=== PATIENT | male | born 1985 | race Caucasian/White ===

== ENCOUNTER 2021-04-10 14:14 | Emergency (ER) | payer OTHER, SELFPAY ==
[2021-04-10 14:20] VITALS: BP 121/62; PULSE 61; RESP 20; TEMP 36.6; O2SAT 100
== END 2021-04-10 14:20 | disposition left against medical advice (07) ==
PROVIDERS: PCP Family Medicine
DX: H57.12 Ocular pain, left eye (principal)
CPT/HCPCS: 99199

== ENCOUNTER 2021-05-19 10:00 | Emergency (ER) | payer OTHER, SELFPAY ==
--- NOTE | ~2021-05-19 | CT_ITS ---
EXAMINATION: CT abdomen pelvis w con DATE: 05/19/2021 12:06 INDICATION: Epigastric abdominal pain TECHNIQUE: Computed tomography (CT) of the abdomen and pelvis was performed with 100 mL Omnipaque-350 intravenous contrast. Automated exposure control and iterative reconstruction technique were employe d. The dose-length product was 386.15 mGy-cm. COMPARISON: None FINDINGS: Mild dependent atelectasis in the bilateral lower lobes. Heart size is normal. No pericardial or pleu ral effusion. Liver, gallbladder, pancreas, spleen, bilateral kidneys and right adrenal gland are nor mal. 1.9 cm left adrenal nodule. Normal appendix. No bowel obstruction. Bladder is normal. No free in traperitoneal gas or fluid. No pathologically enlarged abdominal or pelvic lymphadenopathy. Bones are unremarkable. IMPRESSION: 1. No acute intra-abdominal/pelvic process. 2. Probably benign 1.9 cm left adrenal nodule statistically most likely represents an adenoma but wou ld recommend 12 month follow-up pre and postcontrast adrenal protocol CT or MRI. Reviewed, dictated and finalized at location A. IMPRESSION: 1. No acute intra-abdominal/pelvic process. 2. Probably benign 1.9 cm left adrenal nodule statistically most likely represe nts an adenoma but would recommend 12 month follow-up pre and postcontrast adre nal protocol CT or MRI.
[2021-05-19 10:08] VITALS: BP 123/76; PULSE 60; RESP 19; TEMP 36.7; O2SAT 100
[2021-05-19 10:44] LABS: Basophils Absolute Auto 0.1 K/mm3 (0.0-0.1); Basophils Percent Auto 0.5 % (0.2-1.2); Eosinophils Absolute Auto 0.2 K/mm3 (0-0.3); Eosinophils Percent Auto 1.7 % (0-4.4); Hematocrit 41.7 % (42.0-52.0); Hemoglobin 14.3 g/dL (14.0-18.0); Immature Granulocyte Absolute 0.03 K/mm3 (0.00-0.031); Immature Granulocyte Percent A 0.3 % (0-0.5); Lymphocytes Absolute Auto 2.46 K/mm3 (0.9-3.2); Lymphocytes Percent Auto 22.5 % (18.3-44.2); Mean Corpuscular HGB Conc 34.3 g/dl (32-36); Mean Corpuscular Hemoglobin 30.6 pg (26-34); Mean Corpuscular Volume 89.3 fl (80-100); Mean Platelet Volume 10.9 fl (7.4-10.4); Monocytes Absolute Auto 1.1 K/mm3 (0.1-0.6); Monocytes Percent Auto 9.7 % (2.6-8.5); Neutrophils Absolute Auto 7.1 K/mm3 (1.3-6.7); Neutrophils Percent Auto 65.3 % (45.5-73.1); Platelet Count Result 252 k/mm3 (150-375); Red Blood Count 4.67 M/mm3 (4.6-6.20); Red Cell Distribution Width 12.6 % (11.5-14.5); White Blood Count 10.9 K/mm3 (4.5-10.0)
--- NOTE | 2021-05-19 10:49 | ECG_ITS ---
Measurements Intervals [place] Rate: 43 P: 66 WI: 222 QRS: 18 QRSD: 109 T: 21 QT: 430 QTc: 368 Interpretive Statements SINUS BRADYCARDIA WITH FIRST DEGREE AV BLOCK INCOMPLETE RIGHT BUNDLE BRANCH BLOCK ABNORMAL ECG Electronically Signed On 05-19-2021 11:56:44 CDT by Mckay Healy D.O.
--- NOTE | 2021-05-19 10:50 | ED.ABDPAIN ---
HPI - Abdominal Pain General Chief Complaint: Abdominal Pain Stated Complaint: Abd Pain Time Seen by Provider: 05/19/21 10:22 Source: patient Mode of arrival: ambulatory Limitations: no limitations History of Present Illness HPI narrative: This is a 35 year old male that presents to the ER for epigastric abdominal pain x 3 days. Reports the pain is a constant burning sensation. Reports sometimes it is sharp in nature. Sometimes the pain radiates into his chest. He reports history of peptic ulcer disease. He has not seen a GI doctor in years. He does not take a daily antacid. He did try to take some Pepcid with little relief. Does report one episode of nausea and vomiting. Also reports intermittent diarrhea. Denies fever or melena. Related Data Allergies Allergy/AdvReac Type Severity Reaction Status Date / Time codeine Allergy Mild Unknown Verified 05/19/21 10:16 tramadol Allergy Mild Unknown Verified 05/19/21 10:16 ketorolac [From Toradol] Allergy Unknown Unknown Verified 05/19/21 10:16 Review of Systems Review of Systems: CONSTITUTIONAL: Denies fever GASTROINTESTINAL: Reports abdominal pain, nausea, vomiting, and diarrhea. All systems reviewed & are unremarkable except as noted in HPI and below PMFSH Past Medical History Medical History (Updated 05/19/21 @ 13:27 by Louisa Bernal PA-C) Back pain Migraine Surgical History Surgical History (Updated 05/19/21 @ 10:53 by Louisa Bernal PA-C) History of esophagogastroduodenoscopy (EGD) Family History Family History Mother Breast cancer Other Diabetes mellitus Hypertension Kidney disease Social History Social History Smoking packs per day: 0.5 Smoking cigarettes per day: 10.0 Years smoked: 25 Smoking pack-years: 12.50 Smoking status: Current every day smoker (0.5 ppd x 20 yrs.) Tobacco type: cigarettes Alcohol intake: never Substance use: current Substance use type: marijuana Other substance usage details: occasional recreational use Exam Narrative: GENERAL: Well-appearing, well-nourished, and in no acute distress. HEAD: Normocephalic, atraumatic. EYES: PERRLA and EOMI. CHEST: Clear to auscultation. No respiratory distress. No wheezes rales or rhonchi HEART: Regular rate and rhythm. No murmur heard. Normal peripheral pulses. ABDOMEN: Soft, nondistended, normal active bowel sounds. Tender to palpation in the epigastrium, without guarding EXTREMITIES: Normal range of motion. No edema. SKIN: Warm, dry, no rash. NEURO: No focal deficits. Alert and oriented x3. PSYCH: Normal mood and affect Course Vital Signs Vital signs: Vital Signs Temperature 98.1 F 05/19/21 10:08 Pulse Rate 60 05/19/21 10:08 Respiratory Rate 19 05/19/21 10:08 Blood Pressure 123/76 05/19/21 10:08 Pulse Oximetry 100 05/19/21 10:08 Temperature 98.1 F 05/19/21 10:08 Pulse Rate 60 05/19/21 10:08 Respiratory Rate 19 05/19/21 10:08 Blood Pressure 123/76 05/19/21 10:08 Pulse Oximetry 100 05/19/21 10:08 MDM - Abdominal Pain MDM Narrative Medical decision making narrative: Patient presents to the emergency department for epigastric abdominal pain present over the last couple of days. Reports history of peptic ulcer disease. He is afebrile and nontoxic-appearing. Vitals are stable. CBC with mild leukocytosis to 10.9. Metabolic panel without concerning findings. Lipase is normal. UA without evidence of infection. EKG without acute changes. Baseline troponin is negative. CT scan of the abdomen and pelvis is without acute findings. Does show probably benign 1.9 cm left adrenal nodule, most likely adenoma but would recommend follow-up [address] or MRI. Patient was updated on case findings. He is stable and felt appropriate for further outpatient evaluation. He is to follow-up with gastroenterology
[2021-05-19 11:02] LABS: Alanine Aminotransferase 13 U/L (4-50); Albumin Level 4.5 g/dL (3.5-5.1); Alkaline Phosphatase 55 U/L (38-126); Anion Gap 7 mmol/L (8-16); Aspartate Amino Transferase 18 U/L (17-59); Bilirubin,Total 0.8 mg/dL (0.2-1.3); Blood Urea Nitrogen 12 mg/dL (9-20); Calcium 9.2 mg/dL (8.4-10.2); Carbon Dioxide 27 mmol/L (22-30); Chloride 106 mmol/L (98-107); Estimated CRCL calculation 100 ml/min; Estimated Glomerular Filt Rate > 60; Glucose 95 mg/dL (65-110); Lipase 30 U/L (23-300); Potassium 3.6 mmol/L (3.4-5.0); Sodium 140 mmol/L (137-145)
[2021-05-19 11:38] LABS: Add Urine Microscopic? YES; Appearance Urine Clear (Clear); Bacteria Urine Trace /hpf; Bilirubin Urine Negative (Negative); Blood Urine Negative (Negative); Color Urine Yellow (Yellow); Glucose Urine UA Negative (Negative); Ketones Urine Negative (Negative); Leukocyte Esterase Ur Negative LEU/UL (Negative); Mucus Urine Rare /lpf; Nitrate Urine Negative (Negative); Protein Urine 1+ mg/dL (Negative); Specific Grav Ur 1.018 (1.001-1.035); Squamous Epithelial Cell Urine Rare /hpf (Few); Urobilinogen Urine Negative mg/dL (<2.0); WBC Urine 0-3 /hpf
[2021-05-19 12:33] LABS: Troponin I < 0.012 ng/mL (0.000-0.034)
[2021-05-19] MEDS: SODIUM CHLORIDE 0.9% IV 1,000 ML 999 ML IV CONT (12:57)
[2021-05-19] MEDS: ONDANSETRON INJ 4 MG/2 ML VIAL IV PUSH (12:57)
[2021-05-19] MEDS: PANTOPRAZOLE SODIUM IV 40 MG VIAL IV PUSH (12:57)
[2021-05-19 13:26] LABS: Partial Thromboplastin Time 28.8 SECONDS (22.3-36.8); Prothrombin Time 12.6 Seconds (11.1-14.7)
[2021-05-19 14:12] VITALS: BP 110/74; PULSE 53; RESP 16; O2SAT 100
== END 2021-05-19 13:41 | disposition home or self-care (01) ==
PROVIDERS: Physician Assistant; Emergency Provider Emergency Medicine; PCP Family Medicine
DX: R10.13 Epigastric pain (principal); D35.02 Benign neoplasm of left adrenal gland; F17.210 Nicotine dependence, cigarettes, uncomplicated
CPT/HCPCS: 36415; 74177; 80053; 81001; 83690; 84484; 85025; 85610; 85730; 93005; 96361; 96374; 96375; 99284; C9113; J2405; J7030; Q9967

== ENCOUNTER → 2021-08-13 03:26 | Outpatient (CLI) | payer OTHER, SELFPAY ==
[2021-08-13 14:17] LABS: Influenza Control Positive
[2021-08-14 22:39] LABS: SARS-CoV-2 RNA PCR Positive
== END ==
PROVIDERS: PCP Family Medicine; Visit Provider Physician Assistant
DX: R50.9 Fever, unspecified (principal); U07.1 COVID-19
CPT/HCPCS: 87804; C9803; U0003; U0005

== ENCOUNTER 2023-04-28 11:01 | Outpatient (CLI) | payer OTHER, SELFPAY ==
[2023-04-28 12:19] LABS: Influenza A QL RT-PCR Negative (Negative); Influenza B QL RT-PCR Negative (Negative); RSV RNA, RT-PCR Negative (Negative); SARS-CoV-2 RNA PCR Negative (Negative)
== END 2023-04-28 11:02 | disposition home or self-care (01) ==
PROVIDERS: PCP Family Medicine; Visit Provider Family Medicine
DX: J06.9 Acute upper respiratory infection, unspecified (principal)
CPT/HCPCS: 87637

== ENCOUNTER 2024-03-12 08:40 | Outpatient (NON) | payer OTHER, SELFPAY | END 2024-03-12 08:41 | disposition home or self-care (01) | LOC: ANHLAB 03-13 08:43 | PROVIDERS: PCP Family Medicine; Visit Provider Internal Medicine Gastroenterology | DX: K21.9 Gastro-esophageal reflux disease without esophagitis (principal) | CPT/HCPCS: 88305 ==

== ENCOUNTER 2024-03-12 09:33 | Day surgery (SDC) | payer OTHER, SELFPAY ==
[2024-02-14 10:54] VITALS: BMI 30.9
[2024-02-26 11:27] VITALS: BMI 30.3
--- NOTE | 2024-03-11 15:30 | PM.HPGS ---
History of Present Illness History of Present Illness Consent: Risks, benefits, and alternatives have been discussed and questions answered. Patient agrees to proceed with procedure. Chief complaint: Gerd wo Esophagitis, FM HX Malignant Neoplasm of Narrative: Mario Mcgowan is a 38 year old male who was taking Nexium intermittently, every few months when his heartburn would return and has been doing this since his early 20's. He was taking Nexium 20 mg daily for about a week before seeing his PCP as it was not helping his symptoms. He developed heartburn, sour taste, and sharp pain in the stomach going all the way up to the chest a couple times a week, mainly at night. The heartburn was severe enough to take his breath away when sleeping. He does not report any nausea, vomiting, dysphagia, melena or hematochezia. He was started on omeprazole 40 mg daily on 01/16/2023 which improved his symptoms within a couple days and he has been asymptomatic since. He denies any loss of appetite or unexplained weight loss. He takes ibuprofen 200 mg daily a few times weekly. He denies alcohol use. Family history is significant for esophageal cancer in his mother diagnosed in her 40s. Omeprazole has relieved heartburn but he does still have nocturnal regurgitation. Review of Systems Review of Systems: All systems reviewed & are unremarkable except as noted in HPI and below PMFSH Past Medical History Medical History Back pain Bipolar disorder Migraine Surgical History Surgical History History of esophagogastroduodenoscopy (EGD) Family History Family History Mother Breast cancer Other Diabetes mellitus Hypertension Kidney disease Social History Social History Smoking packs per day: 1 Smoking cigarettes per day: 20.0 Years smoked: 20 Smoking pack-years: 20.00 Smoking status: Current every day smoker Tobacco type: cigarettes Alcohol intake: never Substance use: current Substance use type: marijuana Other substance usage details: smokes marijuana daily Lack of Transportation: No Lack of Food: Never True Current Housing: I Have Housing Concerned About Future Housing: No Difficulty Paying Gas/Electric Bills: No Difficulty Paying for Meds: No Currently Unemployed: No Education: Decline to Answer Difficulty w/ Childcare or Family Care: No Living arrangements: with family Occupation/Education: occupation Gender identity (if verbalized by the patient): Male Sexual Orientation (if Verbalized by the Patient): Straight or Heterosexual Spiritual care concerns: No Agree to blood products: Yes Meds Home Medications and Allergies Home Medications Medication Instructions Recorded Confirmed Type quetiapine 50 mg tablet 250 mg PO QHS #450 tabs 12/11/23 03/12/24 Rx omeprazole 40 mg capsule,delayed 40 mg PO DAILY #30 caps 01/17/24 03/12/24 Rx release Allergies Allergy/AdvReac Type Severity Reaction Status Date / Time codeine Allergy Mild Unknown Verified 03/12/24 10:04 tramadol Allergy Mild Unknown Verified 03/12/24 10:04 ketorolac [From Toradol] Allergy Unknown Unknown Verified 03/12/24 10:04 Exam Const: General: alert Orientation/consciousness: patient oriented x3 Resp: Auscultation: clear to auscultation bilaterally Cardio: Rhythm: regular rhythm GI: GI Palp: Yes Soft to palpation and No Tenderness to palpation present (GI) Neuro: General: patient oriented x3 Assessment and Plan Assessment and plan (1) GERD (gastroesophageal reflux disease): Qualifiers: Esophagitis presence: without esophagitis Qualified Code(s): K21.9 - Gastro-esophageal reflux disease without esophagitis Code(s): K21.9 - Gastro-esophageal reflux disease without
--- NOTE | 2024-03-12 06:46 | P.PNAN_ITS ---
Anes - Initial Pre Proc Eval Procedure: Operation Date: 03/12/24 11:30 Proposed Procedures p Esophagogastroduodenoscopy - Arthur Ji MD Date/Time: 03/12/24 06:46 Surgeon: Arthur Ji MD Pre Op Diagnosis: Gerd wo Esophagitis, FM HX Malignant Neoplasm of Patient Data Age: 38 Gender: M Height: 1.78 m Weight: 96 kg Allergies Allergy/AdvReac Type Severity Reaction Status Date / Time codeine Allergy Mild Unknown Verified 03/12/24 10:04 tramadol Allergy Mild Unknown Verified 03/12/24 10:04 ketorolac [From Toradol] Allergy Unknown Unknown Verified 03/12/24 10:04 Home Medications Medication Instructions Recorded Confirmed Type quetiapine 50 mg tablet 250 mg PO QHS #450 tabs 12/11/23 03/12/24 Rx omeprazole 40 mg capsule,delayed 40 mg PO DAILY #30 caps 01/17/24 03/12/24 Rx release Patient hx anesthesia problems: none Family hx anesthesia problems: none Results Review: All pre-operative results and documents have been reviewed as part of the pre-operative evaluation. [facility] Past Medical History Medical History (Updated 03/11/24 @ 16:46 by Beto Laura DO) Back pain Bipolar disorder Migraine Surgical History Surgical History History of esophagogastroduodenoscopy (EGD) Family History Family History Mother Breast cancer Other Diabetes mellitus Hypertension Kidney disease Social History Social History Smoking packs per day: 1 Smoking cigarettes per day: 20.0 Years smoked: 20 Smoking pack-years: 20.00 Smoking status: Current every day smoker Tobacco type: cigarettes Alcohol intake: never Substance use: current Substance use type: marijuana Other substance usage details: smokes marijuana daily Lack of Transportation: No Lack of Food: Never True Current Housing: I Have Housing Concerned About Future Housing: No Difficulty Paying Gas/Electric Bills: No Difficulty Paying for Meds: No Currently Unemployed: No Education: Decline to Answer Difficulty w/ Childcare or Family Care: No Living arrangements: with family Occupation/Education: occupation Gender identity (if verbalized by the patient): Male Sexual Orientation (if Verbalized by the Patient): Straight or Heterosexual Spiritual care concerns: No Agree to blood products: Yes Anes - Eval Final PreProcedure Day of Procedure 03/12/24 06:46 Patient weight: obese Heart: regular rate and rhythm Lungs: clear to auscultation Airway: Mallampati scale class II Neurological: alert and oriented Last oral intake: >/= 8 hours ASA classification: III Emergent: no Anesthetic plan: proceed Anesthesia type and monitoring: general GIVS and standard monitoring Results Review: All pre-operative results and documents have been reviewed as part of the pre- operative evaluation. Informed Consent: The patient's anesthetic plan and its attendant risks and benefits were discussed with the patient/family/POA. Questions were solicited and answers provided to the satisfaction of the patient/family/POA.
[2024-03-12 10:06] VITALS: BP 133/74; PULSE 65; RESP 18; TEMP 37.1; O2SAT 100
[2024-03-12] MEDS: LACTATED RINGERS 1,000 ML 150 ML IV CONT (10:09)
[2024-03-12 11:05] VITALS: BP 106/64; PULSE 70; RESP 15; O2SAT 96
--- NOTE | 2024-03-12 11:12 | WPDANESPN ---
Anes - Prog Note Post-Op Date/Time: 03/12/24 11:12 Cardiovascular status: normal Respiratory status: normal Airway patency: baseline Mental status: baseline Post-Op hydration status: normal Vital Signs: Last Vital Signs Temp 37.1 C 03/12/24 10:06 Pulse 70 03/12/24 11:05 Resp 15 03/12/24 11:05 BP 106/64 03/12/24 11:05 Pulse Ox 96 03/12/24 11:05 O2 Del Method Room Air 03/12/24 11:05 Pain Score (VAS): 0 I/O: Intake & Output 03/11/24 03/12/24 03/12/24 23:59 07:59 15:59 Intake Total 700 Balance 700 Post-procedural complaints: none Patient Feedback: Patient satisfied with anesthetic care. Other Findings: Patient vital signs back to baseline. Patient denies nausea and vomiting. Patient's pain under control. Patient OK for discharge.
[2024-03-12 11:15] VITALS: BP 104/66; PULSE 66; RESP 15; O2SAT 96
[2024-03-12 11:25] VITALS: BP 129/82; PULSE 66; RESP 16; O2SAT 98
== END 2024-03-12 11:51 | disposition home or self-care (01) ==
PROVIDERS: PCP Family Medicine; Visit Provider Internal Medicine Gastroenterology
PROC: 0DJ08ZZ Inspection of Upper Intestinal Tract, Via Natural or Artificial Opening Endoscopic (ICD-10-PCS; CPT 43235; principal; 2024-03-12 11:30)
DX: K21.00 Gastro-esophageal reflux disease with esophagitis, without bleeding (principal); K29.70 Gastritis, unspecified, without bleeding
CPT/HCPCS: 43239

== ENCOUNTER 2025-05-15 20:26 | Emergency (ER) | payer OTHER, SELFPAY ==
[2025-05-15 21:04] VITALS: BP 153/84; PULSE 75; RESP 15; TEMP 37.1; O2SAT 99
[2025-05-16 00:16] VITALS: BP 153/85; PULSE 67; RESP 16; TEMP 37; O2SAT 99
[2025-05-16 00:36] VITALS: BP 142/71; PULSE 60; RESP 18; TEMP 37.1; O2SAT 98
--- NOTE | 2025-05-16 01:07 | ED_ITS ---
HPI - Dental/Oral General Chief complaint: Skin/Abscess/Foreign Body Stated complaint: Facial swelling Time Seen by Provider: 05/16/25 01:00 Source: patient Mode of arrival: ambulatory Limitations: no limitations History of Present Illness HPI Narrative: Patient is a 39-year-old male presents to the emergency department complaining of dental pain and facial swelling. Patient notes that started has dental pain on Monday and then when he woke up today his face was swollen the right side. Patient is having pain along the 7th tooth where he has a broken tooth, did contact his dentist to 7 a prescription for amoxicillin which she took 2 doses of 500 mg tonight and start the antibiotic tonight. Patient denies any fevers. Patient denies any difficulty swelling, chest pain, difficulty breathing, vision changes. Related Data Allergies Allergy/AdvReac Type Severity Reaction Status Date / Time codeine Allergy Mild Unknown Verified 10/17/24 13:00 tramadol Allergy Mild Unknown Verified 10/17/24 13:00 ketorolac (From Toradol) Allergy Unknown Unknown Verified 10/17/24 13:00 Review of Systems Review of Systems: A 10 system review of systems was completed on the patient and is negative except for what is stated in the HPI. Nursing and ancillary documentation was reviewed. [facility] Past Medical History Medical History Broken finger Bipolar disorder Migraine Back pain Surgical History Surgical History History of esophagogastroduodenoscopy (EGD) Family History Family History Mother Breast cancer Other Diabetes mellitus Hypertension Kidney disease Social History Social History Smoking packs per day: 1 Smoking cigarettes per day: 20.0 Years smoked: 20 Smoking pack-years: 20.00 Smoking status: Current every day smoker Tobacco type: cigarettes Alcohol intake: never Substance use: current Substance use type: marijuana Other substance usage details: smokes marijuana daily Lack of Transportation: No Lack of Food: Never True Current Housing: I Have Housing Concerned About Future Housing: No Difficulty Paying Gas/Electric Bills: No Difficulty Paying for Meds: No Currently Unemployed: No Education: Decline to Answer Difficulty w/ Childcare or Family Care: No Living arrangements: with family Occupation/Education: occupation Gender identity (if verbalized by the patient): Male Sexual Orientation (if Verbalized by the Patient): Straight or Heterosexual Spiritual care concerns: No Agree to blood products: Yes Exam Narrative: CONST: No acute distress. Well nourished. HENMT: Head is normocephalic and atraumatic. Moist mucous membranes. No posterior oropharynx erythema. Tenderness palpation of the 7th tooth, no surrounding gingival erythema or palpable fluctuance amenable to I and D. Scant right maxillary swelling, no palpable fluctuance. Uvula is midline. EYES: No scleral icterus. No conjunctival injection or pallor. PERRL. NECK: No meningeal signs. No cervical lymphadenopathy. RESP: Able to speak in full sentences. Normal respiratory effort. CTAB. CARDIO: Regular rate. Regular rhythm. 2+ DP and radial pulses bilaterally. GI: Nondistended. No tenderness to palpation. Soft. : No CVA tenderness to palpation. SKIN: No rashes or lesions noted on exposed skin. NEURO: Oriented x3. Moves all extremities. EXTREM/MSK/BACK: No pedal edema. PSYCH: Normal affect. Course Vital Signs Vital signs: Vital Signs Temperature 98.7 F 05/15/25 21:04 Pulse Rate 75 05/15/25 21:04 Respiratory Rate 15 05/15/25 21:04 Blood Pressure 153/84 H 05/15/25 21:04 Pulse Oximetry 99 05/15/25 21:04 Oxygen Delivery Room Air 05/15/25 21:04 Temperature 98.7 F 05/16/25 00:36 Pulse Rate 60 05/16/25 00:36 Respiratory Rate 18 05/16/25 00:36 Blood Pressure 142/71 H 05/16/25 00:36 Pulse Oximetry 98 05/16/25 00:36 Oxygen Delivery Room Air 05/15/25 21:04 MDM - Dental/Oral MDM Narrative Medical decision making narrative: Patient presents with the above complaint. Initial vitals are remarkable for no significant abnormalities. Physical examination as noted above. Differential diagnosis includes was not limited to: Toothache, dental abscess Plan discussed: Switch antibiotic amoxicillin to Augmentin, fill and start taking in the morning, follow-up with dentist in the next 24-48 hours for reassessment, strict return precautions including any swelling spreading to his eye, vision changes, difficulty swelling, chest pain, difficulty breathing, fever, vomiting, or any emergent concerns for life, limb, eyesight. I do not appreciate any identifiable pocket of fluid that would be amenable to drainage at this time, patient states that this may develop any to return or follow up with his dentist for drainage if the swelling is worse. Patient stands to sleep in a recliner with his head of the bed elevated to avoid swelling getting worse. Patient was reassessed at the bedside. No changes in physical exam. Patient is in no acute distress. The patient has remained stable throughout the entire ED visit. Counseled patient regarding diagnostic results and potential diagnosis. Anticipatory guidance provided. Patient instructed to follow up with dentist in the next 24-48 hours. Patient counseled on: false reassurance from an emergency department evaluation; no current evidence of a medical emergency; return immediately for any new, recurrent, worsening, concerning, or refractory symptoms. Patient prescribed Augmentin instructed to stop taking amoxicillin. Prescription sent to preferred pharmacy. Medications discussed with patient. Additional verbal and printed discharge instructions were given and discussed with the patient. Patient verbally acknowledges understanding of condition and discharge instructions. All questions were answered to the patient's satisfaction. Patient is in agreement with the plan of care. The patient is stable for discharge and was discharged without incident. Discharge Plan Discharge Clinical Impression: Dental abscess Patient Disposition: Home Condition: Stable Instructions: Antibiotic Form, Dental Abscess (ED) Additional Instructions: Stop the amoxicillin and start taking Augmentin I sent a prescription to the pharmacy, fell in the morning time and start taking that. Sleep with your head of the bed elevated to help with swelling. Tylenol and Motrin as needed for any discomfort. Follow up with the list of clinics provided to 3-year-old dentist in the next 24-48 hours for reassessment. Return immediately to the emergency department for any new or concerning symptoms especially swelling markedly getting worse and spreading toward dry, difficulty swelling, chest pain, difficulty breathing, fever, or any emergent concerns for life, limb, eyesight. Patient Language: Haitian Prescriptions: New amoxicillin-pot clavulanate 875-125 mg tablet 1 tablet PO Q12H 10 Days Qty: 20 0RF No Action risperidone 0.5 mg tablet 0.5 mg PO QHS Qty: 30 3RF pantoprazole 40 mg tablet,delayed release (DR/EC) See Rx Instructions .ROUTE .COMPLEX Qty: 180 1RF Dose Instruction: TAKE 1 TABLET BY MOUTH TWICE A DAY Rx Instructions: TAKE 1 TABLET BY MOUTH TWICE A DAY aripiprazole [Abilify] 2 mg tablet 4 mg PO DAILY Qty: 180 1RF Follow-up/Referrals: Rosanna Samaniego MD [Primary Care Provider, Family Practice] Stand Alone Forms: Work/School Release IP Time of Disposition: 01:13
--- OUTSIDE RECORDS SUMMARY | 2025-05-16 01:10 | XMS_ITS | Encounter Summary ---
Author Organization [facility] Address [address] [place] [address] Phone Care Team Providers Care Forming Acid Dumper Name Role Phone No, Physician Primary Care Provider [phone] Encounter Details Date Type Department Care Team (Late st Contact Info) Description 04/10/2021 Ophth Exam [facility] [address] [place] [address] [address] [place] [address] Medina Rousseau MD PhD [id number] [place] [address] Social History Tobacco Use Types Packs/Day Years Used Date Smoking Tobacco: Every Day Cigarettes Smokeless Tobacco: Never Sex and Gender Information Value Date Recorded Sex Assigned at Not on file Legal Sex Male 8:15 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 [employer] Gender Identity Not on file Sexual Orientation Not on file documented as of this encounter Plan of Treatment Not on file documented as of this encounter Visit Diagnoses Not on filedocumented in this encounter Eye Exam Visual Acuity (Snellen - Linear) Right eye Left eye Near sc 20/20 20/20 Tonometry (Tonopen, 7:31 PM) Right eye Left eye Pressure 23 21 Pupils Dark Light Shape React APD Right eye 3 1.5 Round Brisk None Left eye 3 1.5 Round Brisk None Visual Shaikh Right eye Left eye Full Full Extraocular Movement Right eye Left eye Full Full Dilation Both eyes: Tropicamide, 2.5% Phenylephrine @ 7:30 PM External Exam Right eye Left eye External Normal Normal Slit Lamp Exam Right eye Left eye Lids/Lashes Normal Normal Conjunctiva/Sclera White and quiet Mild injectio n Cornea Clear Small (<1mm) met allic FB around 9:00 near cornea limbus, out of visual axis, with overlying epi defect. Located in anterior stroma. Sandra negative before and after removal. Anterior Chamber Deep and quiet Deep and quiet Iris Round and reactive Round and [place] ctive Lens Clear Clear Vitreous Normal Normal Fundus Exam Right eye Left eye Disc Normal, perfused Normal, perfuse d Macula Normal, flat, attached Normal, f lat, attached Vessels Normal Normal Periphery Normal Normal Care Teams Forming Acid Dumper Relationship Specialty Start Date End Date No, Physician PCP - General 04/10/21 documented as of this encounter
--- OUTSIDE RECORDS SUMMARY | 2025-05-16 01:10 | XMS_ITS | Clinical Summary ---
Author Organization [facility] Address [address] [place] [address] Care Team Providers Care Size Maker Name Role Phone No, Physician Primary Care Provider [phone] Allergies Active Allergy Reactions Criticality Noted Date Comments Codeine Hives Medium 09/12/2021 Tramadol Hives Medium 04/10/2021 Medications No known medications Active Problems Problem Noted Date Diagnosed Date Foreign body of left cornea 04/18/2021 Assessment & Plan (04/19/2021 11:49 AM CDT): S/p removal / in ED -Doing well today with trace epi irregularity, mostly healed -Continue moxifloxacin qid OS for 3-4 more days then stop. Call or come in immediately if any new or worsening symptoms. If feeling back to baseline, can follow locally for routine care. Immunizations Immunization Administration Dates Next Due Tdap 09/12/2021 Surgical History Surgery Date Site/Laterality Comments HAND SURGERY 08/07/2018 - 08/06/2019 [facility] Medical History Medical History Date Comments Foreign body of left cornea Family History Medical History Relation Name Comments Cancer Mother Relation Name Status Comments Mother Social History Tobacco Use Types Packs/Day Years Used Date Smoking Tobacco: Every Day Cigarettes Smokeless Tobacco: Never Alcohol Use Standard Drinks/Week Comments Not Currently 0 (1 standard drink = 0.6 oz pur e alcohol) Sex and Gender Information Value Date Recorded Sex Assigned at Not on file Legal Sex Male 8:15 AM [employer] Gender Identity Not on file Sexual Orientation Not on file Obstetrics History Last Filed Vital Signs Vital Sign Reading Time Taken Comments Blood Pressure 130/82 12/03/2021 7:56 AM CDT Pulse 72 12/03/2021 7:56 AM CDT Temperature 36.9 C (98.4 F) 11/23/2021 1:18 AM CDT Respiratory Rate 18 11/23/2021 1:15 AM CDT Oxygen Saturation 96% 11/23/2021 1:18 AM CDT Inhaled Oxygen Concentration - - Weight 81.6 kg (180 lb) 12/03/2021 7:56 AM CDT Height 182.9 cm (6') 12/03/2021 7:56 AM CDT Body Mass Index 24.41 12/03/2021 7:56 AM CDT Plan of Treatment Health Maintenance Due Date Last Done Comments Depression Screening 1984 Hepatitis C Screening 1984 Varicella Vaccines (1 of 2 - 13+ 2-dose series) 1997 Hepatitis B Screening 2002 Regular Well Visit/Exam 18-64 2002 Pneumococcal vaccine <65 (1 of 2 - PCV) 12/18/2003 HPV Vaccines (1 - 3-dose SCDM series) 12/18/2011 Covid-19 Vaccine (2 - 2024- season) 04/07/202506/2021 Influenza Vaccine (#1) 2025 DTaP/Tdap/Td Vaccine (2 - Td or Tdap) 09/12/203101/2022 Insurance [email or web address] OPEN ACCESS * Guarantor: WILLARD Myreks Account Type Relation to Patient Date of Phone Billing Address Workers Comp Employer [employer] Advance Directives For more information, please contact: [phone] * Full Code (Latest Code Status on File) Date Activated Date Inactivated Comments 09/12/2021 3:35 PM 09/13/2021 12:46 PM Care Teams Size Maker Relationship Specialty Start Date End Date No, Physician PCP - General 04/10/21
[2025-05-16 01:31] VITALS: BP 146/79; PULSE 62; RESP 16; TEMP 36.8; O2SAT 99
== END 2025-05-16 01:32 | disposition home or self-care (01) ==
PROVIDERS: Emergency Provider Student in an Organized Health Care Education/Training Program; PCP Family Medicine
DX: K04.7 Periapical abscess without sinus (principal); F31.9 Bipolar disorder, unspecified; F17.210 Nicotine dependence, cigarettes, uncomplicated; Z79.899 Other long term (current) drug therapy
CPT/HCPCS: 99283